=== PATIENT | female | born 1990 | race African-American/Black ===

== ENCOUNTER 2022-09-26 23:28 | Emergency (ER) | payer BC ==
[~2022-09-26] VITALS: Ht 175.3 cm; Wt 81.6 kg
--- NOTE | 2022-09-27 00:10 | NUR ---
TO ER BED 2. BIBS C/O N/V/D WITH LOWER ABDOMINAL PAIN X6 HOURS. PT IS ALERT AND ORIENTED. RR EVEN AND NONLABORED. EMESIS BAG PROVIDED. CONNECTED TO POX AND HEART MONITOR
[2022-09-27] MEDS ORDERED: DICYCLOMINE HCL INJ 20 MG/2 ML AMPUL IM ONE (00:14)
[2022-09-27] MEDS ORDERED: ONDANSETRON HCL/PF 4 MG/2 ML VIAL ONE (00:14)
[2022-09-27] MEDS: DICYCLOMINE HCL INJ 20 MG/2 ML AMPUL IM ONE (00:20)
[2022-09-27] MEDS: ONDANSETRON HCL/PF 4 MG/2 ML VIAL IVP ONE (00:20)
[2022-09-27] MEDS: IV NS 0.9% 1,000 ML BAG IV ONE (00:20)
--- NOTE | 2022-09-27 00:49 | NUR ---
IV LINE ESTABLISHED, [id number]
--- NOTE | 2022-09-27 00:52 | NUR ---
PT UNABLE TO PROVIDE URINE
[2022-09-27 01:03] LABS: BASOPHILS % (AUTO) 0.1 % (0.0-2.0); EOSINOPHILS % (AUTO) 0.4 % (0.0-6.0); HEMATOCRIT 43 % (33-45); HEMOGLOBIN 14.1 g/dL (11.5-14.8); LYMPHOCYTES # (AUTO) 0.9 K/uL (0.8-4.8); LYMPHOCYTES % (AUTO) 8.1 % (20.0-44.0); MEAN CORPUSCULAR HGB CONC 33 g/dl (31.0-36.0); MEAN CORPUSCULAR VOLUME 87 fL (82-100); MONOCYTES # (AUTO) 0.6 K/uL (0.1-1.30); MONOCYTES % (AUTO) 5.1 % (2.0-12.0); NEUTROPHILS # (AUTO) 9.8 K/uL (1.8-8.9); NEUTROPHILS % (AUTO) 86.3 % (43.0-81.0); PLATELET COUNT (AUTO) 281 K/uL (150-450); WHITE BLOOD COUNT (AUTO) 11.3 K/uL (4.3-11.0)
--- NOTE | 2022-09-27 01:17 | NUR ---
pt to ct
[2022-09-27 01:22] LABS: CALCIUM, SERUM 9.2 mg/dL (8.5-10.1); CREATININE 1.1 mg/dL (0.6-1.3); POTASSIUM 2.9 mmol/L (3.5-5.1)
--- NOTE | 2022-09-27 01:27 | NUR ---
PT RETURNED TO ER BED [address]
[2022-09-27 01:28] LABS: BILIRUBIN,DIRECT 0.2 mg/dL (0.0-0.2); BILIRUBIN,TOTAL 0.8 mg/dL (0.2-1.0)
[2022-09-27] MEDS ORDERED: MORPHINE SULFATE INJ 2 MG/ML DISP.SYRIN ONE (01:32)
[2022-09-27] MEDS: MORPHINE SULFATE INJ 2 MG/ML DISP.SYRIN IV ONE (01:39)
[2022-09-27 02:14] LABS: BILIRUBIN,URINE NEGATIVE (NEGATIVE); COLOR,URINE YELLOW (YELLOW); LEUKOCYTE ESTERASE ,URINE NEGATIVE (NEGATIVE); NITRITE, URINE NEGATIVE (NEGATIVE); PH,URINE 5.5 (5.0-8.0); PROTEIN,URINE NEGATIVE (NEGATIVE); UGLUCOSE NEGATIVE (NEGATIVE); UROBILINOGEN,URINE 0.2 EU/dL (0.2)
[2022-09-27 02:18] LABS: BACTERIA,URINE Rare /HPF (None Seen); WBC,URINE 0-2 /HPF (0-3)
[2022-09-27 02:19] LABS: SQUAMOUS EPITHELIAL CELL,UR Rare /HPF (None Seen)
[2022-09-27] MEDS ORDERED: ONDA4TAB5 PO (02:45)
[2022-09-27] MEDS ORDERED: POTASSIUM CHLORIDE 20 MEQ TAB.PRT.SR PO ONE (02:46)
[2022-09-27] MEDS: POTASSIUM CHLORIDE 20 MEQ TAB.PRT.SR PO ONE (02:57)
--- NOTE | 2022-09-27 02:57 | NUR ---
IV removed. Catheter intact and site benign. Pressure and 4x4 applied to site. No bleeding noted.
--- NOTE | 2022-09-27 02:57 | NUR ---
Patient discharged to home in stable condition. Written and verbal after care instructions given. Patient verbalizes understanding of instruction.
[2022-09-27 02:58] VITALS: BP 120/78
== END 2022-09-27 02:58 | disposition home or self-care (01) ==
LOC: ER 23:33
DX: K52.9 Noninfective gastroenteritis and colitis, unspecified (principal); E87.6 Hypokalemia
CPT/HCPCS: 99285; 74176; 96374; 96361; 96375; 85025; 80048; 83690; 80076; 81001; 36415; 85730; 96372; J2405; J7030; J0500; J2270